=== PATIENT | male | born 1955 | race Hispanic/Latino ===

== ENCOUNTER 2019-02-24 16:56 | Emergency (ER) | payer BC ==
[~2019-02-24] VITALS: Ht 180.3 cm; Wt 108.9 kg
[2019-02-24] MEDS ORDERED: SODIUM CHLORIDE 0.9% 1000ML 1,000 ML IV STA (17:02)
[2019-02-24] MEDS ORDERED: MORPHINE SULFATE 2 MG/ML SYR 1ML IV STA (17:02)
[2019-02-24] MEDS ORDERED: ONDANSETRON HCL INJ 2MG/ML 2ML 2 MG/ML VIAL IV STA (17:02)
[2019-02-24] MEDS ORDERED: KETOROLAC TROMETHAMINE 30 MG/ML VIAL IV ONE (17:10)
[2019-02-24] MEDS ORDERED: MORPHINE SULFATE INJ 4 MG/ML INJ 1ML IV NR (17:15)
[2019-02-24 17:42] LABS: BASOPHILS % 0.5 % (0.0-1.0); EOSINOPHILS # (AUTO) 0.3 (0.0-0.4); EOSINOPHILS % 3.2 % (0.0-6.0); HEMOGLOBIN 15.1 g/dL (14.0-18.0); LYMPHOCYTES # (AUTO) 1.2 (1.0-3.2); LYMPHOCYTES % 15.8 % (18.0-39.1); MEAN CORPUSCULAR HEMOGLOBIN 28.7 pg (28-32); MEAN CORPUSCULAR HGB CONC 34.3 g/dL (31-35); MEAN CORPUSCULAR VOLUME 83.7 fL (81-99); MONOCYTES # (AUTO) 0.7 (0.2-0.8); MONOCYTES % 9.2 % (4.4-11.3); NEUTROPHILS # (AUTO) 5.4 (2.1-6.9); NEUTROPHILS % 70.8 % (38.7-80.0); PLATELET COUNT 234 x10e3/uL (140-360); RED BLOOD COUNT 5.26 x10e6/uL (4.3-5.7); RED CELL DISTRIBUTION WIDTH 13.4 % (11.7-14.4)
[2019-02-24 18:00] LABS: ALANINE AMINOTRANSFERASE 45 IU/L (0-55); ALBUMIN/GLOBULIN RATIO 1.3 (0.8-2.0); ALKALINE PHOSPHATASE 87 IU/L (40-150); BLOOD UREA NITROGEN 21 mg/dL (7-26); BUN/CREATININE RATIO 18 (6-25); CALCIUM 9.7 mg/dL (8.4-10.2); CARBON DIOXIDE 22 mmol/L (22-29); CHLORIDE 105 mmol/L (98-107); EST GLOMERULAR FILTRATION RATE > 60 ML/MIN (60-); GLUCOSE 191 mg/dL (74-118); SODIUM 136 mmol/L (136-145)
[2019-02-24 18:20] LABS: BILIRUBIN,URINE NEGATIVE (NEGATIVE); CLARITY,URINE SL CLOUDY (CLEAR); COLOR,URINE YELLOW (YELLOW); KETONES,URINE NEGATIVE (NEGATIVE); LEUKOCYTE ESTERASE ,URINE NEGATIVE (NEGATIVE); NITRITE,URINE NEGATIVE (NEGATIVE); PROTEIN,URINE DIPSTICK NEGATIVE (NEGATIVE); URINE UROBILINOGEN 0.2 mg/dL (0.2 - 1)
--- NOTE | 2019-02-24 18:26 | Diagnostic Imaging Report ---
EXAM: CT of the abdomen and pelvis WITHOUT contrast HISTORY: STONE PROTOCOL, pain, right COMPARISON: None available. TECHNIQUE: The abdomen and pelvis were scanned utilizing a multidetector helical scanner. Coronal and sagittal reformats are available. PROTOCOL: Renal colic IV CONTRAST: None, which limits sensitivity and specificity of evaluation of the soft tissues and vascular structures. ORAL CONTRAST: None, which limits sensitivity and specificity of evaluation of the bowel. RADIATION DOSE: Total DLP: 802.75 mGy*cm Estimated effective dose: (DLP x 0.015 x size factor) Dose modulation, iterative reconstruction, and/or weight based adjustment of the mA/kV was utilized to reduce the radiation dose to as low as reasonably achievable. COMPLICATIONS: None FINDINGS: LOWER THORAX: A 3 mm right lower lobe medial calcified granuloma (axial image 1). A 4 mm lingular indeterminate solid nodule (axial image 20). HEPATOBILIARY: No definite focal hepatic lesions. No biliary ductal dilatation. The gallbladder is unremarkable. SPLEEN: No splenomegaly. PANCREAS: No focal masses or ductal dilatation. ADRENALS: No adrenal nodule. KIDNEYS/URETERS: Right: * A 7 mm stone within the dependent portion of the urinary bladder near the ureterovesicular junction. * Moderate right hydroureteronephrosis and perinephric fat stranding. * A 2 mm right interpolar region stone. * A 2.4 cm simple appearing partially exophytic right renal cyst near the superior pole. Left: * A punctate calcification near the inferior pole. * A 1.8 cm simple appearing cyst at the interpolar region. PELVIC ORGANS/BLADDER: The prostate is enlarged, 6.5 cm (ML). Lobulated mass effect on the base of the urinary bladder. PERITONEUM / RETROPERITONEUM: No free air or fluid. GI TRACT: On limited evaluation of the gastrointestinal tract, no dilation or wall thickening identified. The appendix is not visualize, but there are no inflammatory changes about the cecum. LYMPH NODES: No pathologically enlarged lymph nodes. VESSELS: Diffuse scattered atherosclerotic vascular calcifications. BONES: No aggressive osseous lesion or acute fracture. L5 pars interarticularis defects with mild grade 1 anterolisthesis. SOFT TISSUES: A 2.5 cm right erector spinae lipomatous lesion, the internal density is homogeneously fat, compatible with an intramuscular lipoma. IMPRESSION: 1. Moderate right hydroureteronephrosis, likely secondary to a recently passed 7 mm stone into the urinary bladder. 2. A 2 mm right interpolar region stone. 3. A punctate nonobstructing left renal stone. 4. A 4 mm indeterminate lingular pulmonary nodule. If the patient has a increased risk for cancer, such as a significant smoking history or known malignancy, a CT of the chest without contrast is recommended for surveillance follow-up. 5. Enlarged prostate. 6. L5 pars interarticularis defects with associated grade 1 anterolisthesis. Signed by: Dr. Philippe Escobar D.O., M.M.M. on 02/24/2019 6:23 PM
[2019-02-24 18:29] LABS: BACTERIA,URINE FEW /HPF; RBC,URINE 21-50 /HPF (0-5)
== END 2019-02-24 18:56 | disposition home or self-care (01) ==
LOC: ER 16:56
DX: R10.31 Right lower quadrant pain (principal); R31.9 Hematuria, unspecified; N20.0 Calculus of kidney; I10 Essential (primary) hypertension; E11.9 Type 2 diabetes mellitus without complications
CPT/HCPCS: 36415; 74176; 80053; 81001; 85025; 99284; J1885; J2270; J2405; J7030